=== PATIENT | male | born 2000 | race Caucasian/White ===

== ENCOUNTER 2023-05-06 20:06 | Emergency (ER) | payer MEDICAID ==
[~2023-05-06] VITALS: Ht 172.7 cm; Wt 99.8 kg
[2023-05-06 20:30] VITALS: BP 125/73; PULSE 96; RESP 17; TEMP 98.1; O2SAT 99
--- NOTE | 2023-05-06 20:33 | NUR ---
TO LOBBY A/W BED AMBULATORY
[2023-05-06] MEDS ORDERED: KETOROLAC 30 MG/ML VIAL IM ONE (21:25)
[2023-05-06] MEDS ORDERED: LID5T TP (21:28)
[2023-05-06] MEDS ORDERED: IBUP-2213 PO (21:28)
[2023-05-06 21:58] VITALS: BP 135/84; PULSE 84; RESP 18; O2SAT 98
--- NOTE | 2023-05-06 22:00 | NUR ---
Patient discharged with v/s stable. Written and verbal after care instructions given and explained. Patient alert, oriented and verbalized understanding of instructions. Ambulatory with steady gait. All questions addressed prior to discharge. ID band removed. Patient advised to follow up with PMD. Rx of Ibuprofen, Lidoderm patch given. Patient educated on indication of medication including possible reaction and side effects. Opportunity to ask questions provided and answered.
== END 2023-05-06 22:00 | disposition home or self-care (01) ==
LOC: MED 20:06
DX: S43.402A Unspecified sprain of left shoulder joint, initial encounter (principal); Z79.899 Other long term (current) drug therapy; Z79.1 Long term (current) use of non-steroidal anti-inflammatories (NSAID); X58.XXXA Exposure to other specified factors, initial encounter; Y92.89 Other specified places as the place of occurrence of the external cause; Y93.89 Activity, other specified; Y99.8 Other external cause status
CPT/HCPCS: 96372; 99283; J1885